=== PATIENT | female | born 1955 | race Caucasian/White ===

== ENCOUNTER 2018-11-12 12:45 | Emergency (ER) | payer MEDICAID ==
[~2018-11-12] VITALS: Ht 167.6 cm; Wt 72.7 kg
[2018-11-12 13:41] LABS: BASO # 0.1 10^3/uL (0.0-0.2); BASO % 0.7 % (0.0-1.0); EOS # 0.3 10^3/uL (0.0-0.50); EOS % 3.1 % (0.0-3.0); HEMATOCRIT 38.7 % (36.0-47.0); HEMOGLOBIN 12.6 g/dl (12.0-15.5); LYMPH % 22.2 % (24.0-44.0); MEAN CORPUSCULAR HEMOGLOBIN 29.7 pg (27.0-33.0); MEAN CORPUSCULAR HGB CONC 32.6 g/dl (32.0-36.5); MEAN CORPUSCULAR VOLUME 91.3 fl (80.0-96.0); MONO # 0.9 10^3/uL (0.0-0.8); MONO % 9.6 % (0.0-5.0); NEUTROPHILS # 5.8 10^3/uL (1.8-7.7); PLATELET COUNT, AUTOMATED 336 10^3/uL (150-450); RED BLOOD COUNT 4.24 10^6/uL (4.00-5.40); WHITE BLOOD COUNT 9.1 10^3/uL (4.0-10.0)
[2018-11-12 13:48] LABS: BLOOD UREA NITROGEN 27 MG/DL (7-18); CALCIUM LEVEL 9.3 MG/DL (8.8-10.2); CARBON DIOXIDE LEVEL 28 MEQ/L (21-32); CHLORIDE LEVEL 108 MEQ/L (98-107); CREATININE FOR GFR 0.91 MG/DL (0.55-1.30); GLOMERULAR FILTRATION RATE > 60.0 (>45); GLUCOSE, FASTING 94 MG/DL (70-100); NT-PRO BNP 33 PG/ML (<125); POTASSIUM SERUM 4.1 MEQ/L (3.5-5.1); SODIUM LEVEL 141 MEQ/L (136-145)
[2018-11-12 16:25] LABS: ALBUMIN 3.6 GM/DL (3.2-5.2); ALT/SGPT 26 U/L (12-78); BILIRUBIN,DIRECT 0.1 MG/DL (0.0-0.2); BILIRUBIN,TOTAL 0.3 MG/DL (0.2-1.0); CPK CREATINE PHOSPHOKINASE 134 U/L (26-192); TOTAL PROTEIN 7.6 GM/DL (6.4-8.2)
[2018-11-12 16:30] LABS: APPEARANCE, URINE CLEAR (CLEAR); BACTERIA, URINE AUTO NEGATIVE (NEGATIVE); BILIRUBIN, URINE AUTO NEGATIVE (NEGATIVE); BLOOD, URINE BLOOD NEGATIVE (NEGATIVE); COLOR, URINE YELLOW (YELLOW); GLUCOSE, URINE (UA) AUTO NEGATIVE (NEGATIVE); KETONE, URINE AUTO TRACE mg/dL (NEGATIVE); LEUKOCYTE ESTERASE, URINE AUTO TRACE (NEGATIVE); MUCUS, URINE SMALL (NEGATIVE); NITRITE, URINE AUTO NEGATIVE (NEGATIVE); PROTEIN, URINE AUTO NEGATIVE (NEGATIVE); RBC, URINE AUTO 3 /HPF (0-3); SPECIFIC GRAVITY URINE AUTO 1.027 (1.002-1.035); SQUAMOUS EPITHELIAL CELL UR AU 1 /HPF (0-6); UROBILINOGEN, URINE AUTO 0.2 mg/dL (0.0-2.0); WBC, URINE AUTO 4 /HPF (0-3)
--- NOTE | 2018-11-12 16:45 | REP ---
Clinical: Bilateral lower extremity pain and swelling. Technique: Trent scale and color Doppler evaluation using linear high frequency transducer. Findings: Ultrasound examination of the right and left lower extremity deep venous structures from the common femoral vein to the popliteal vein demonstrates normal compressibility flow and wave patterns in response to respiration and augmentation. There is no evidence for deep venous thrombosis. Impression: No evidence for deep venous thrombosis. Electronically Signed by David Duran MD 11/12/2018 04:36 P
[2018-11-12 17:10] VITALS: BP 138/84
== END 2018-11-12 17:15 | disposition home or self-care (01) ==
LOC: M ED 12:45
DX: M79.89 Other specified soft tissue disorders (principal); Z88.0 Allergy status to penicillin

== ENCOUNTER 2019-02-21 10:20 | Emergency (ER) | payer MEDICAID, OTHER ==
[~2019-02-21] VITALS: Ht 167.6 cm; Wt 72.7 kg
--- NOTE | 2019-02-21 11:54 | REP ---
Left shoulder three views : There is no fracture or dislocation. Mineralization and joint spaces are normal. There are no calcifications or foreign bodies. Impression: Negative left shoulder . Electronically Signed by Clay Tate MD 02/21/2019 11:45 A
--- NOTE | 2019-02-21 11:55 | REP ---
Right knee five views : There is no fracture or dislocation. Mineralization and joint spaces are normal. There are no calcifications or foreign bodies. There is no evidence of hemarthrosis. Impression: Negative right knee . Electronically Signed by Clay Tate MD 02/21/2019 11:46 A
[2019-02-21] MEDS ORDERED: NAPR-885 PO (12:07)
[2019-02-21 12:14] VITALS: BP 137/80
== END 2019-02-21 12:32 | disposition home or self-care (01) ==
LOC: M ED 10:20
DX: S83.91XA Sprain of unspecified site of right knee, initial encounter (principal); S43.422A Sprain of left rotator cuff capsule, initial encounter; W01.0XXA Fall on same level from slipping, tripping and stumbling without subsequent striking against object, initial encounter; Y92.89 Other specified places as the place of occurrence of the external cause; Z88.0 Allergy status to penicillin

== ENCOUNTER 2020-07-09 02:06 | Emergency (ER) | payer OTHER ==
[~2020-07-09] VITALS: Ht 167.6 cm; Wt 81.5 kg
[~2020-07-09 02:06] MED LIST: NAPR-885 PO
[2020-07-09] MEDS ORDERED: ACET-841 PO (02:14)
[2020-07-09] MEDS ORDERED: NAPR-837 PO (04:23)
[2020-07-09] MEDS ORDERED: NAPROXEN 250 MG TAB PO ONE (04:25)
[2020-07-09 04:37] VITALS: BP 135/83
== END 2020-07-09 04:38 | disposition home or self-care (01) ==
LOC: M ED 02:06
DX: M25.552 Pain in left hip (principal); X50.3XXA Overexertion from repetitive movements, initial encounter; Z88.0 Allergy status to penicillin

== ENCOUNTER → 2020-08-31 | Outpatient (CLI) | payer OTHER ==
[~2020-08-31] MED LIST changes: +ACET-841 PO; +ISOVUE-300 61% 50ML VIAL As Ordered ONE; +LIDOCAINE 1% MDV 20ML VIAL As Ordered ONE; +NAPR-837 PO; +TRIAMCINOLONE ACETONIDE SUSP 40 MG/ML VIAL (J3301) As Ordered ONE
--- NOTE | 2020-08-31 17:02 | REP ---
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 COMPARISON: None. TECHNIQUE: The procedure was performed under the direct supervision of Dr. Trent. The benefits and risks including but not limited to pain infection and bleeding and anaphylaxis were explained to the patient and informed consent was obtained. The left femoral neck was localized using fluoroscopic guidance. The skin was prepped and draped in a sterile fashion. 1% lidocaine was used as a local anesthetic. Using fluoroscopic guidance, and last image hold technology, a 22-gauge spinal needle was inserted and advanced to the femoral neck. 0.5 ml of Isovue-300 was injected to verify placement. Six ml of a solution containing 5 ml of 1% Xylocaine and 1 mL of Kenalog 40 mg was injected. The needle was then removed. The patient tolerated the procedure well and there were no immediate complications. Less than 6 seconds of fluoro time was utilized for this procedure. FINDINGS: None IMPRESSION: Fluoro guidance for left hip injection. <Electronically signed by Alirio Hopkins > 08/31/20 [id number] <Electronically signed by Clay Trent > 08/31/20 [id number]
== END ==
LOC: M RADPRO 11:18
PROVIDERS: ATTEND Orthopaedic Surgery
DX: M16.12 Unilateral primary osteoarthritis, left hip (principal)
CPT/HCPCS: 20610; 77002; J3301; Q9967

== ENCOUNTER → 2020-11-03 | Outpatient (CLI) | payer OTHER ==
[~2020-11-03] MED LIST changes: -ISOVUE-300 61% 50ML VIAL As Ordered ONE; -LIDOCAINE 1% MDV 20ML VIAL As Ordered ONE; -TRIAMCINOLONE ACETONIDE SUSP 40 MG/ML VIAL (J3301) As Ordered ONE
[2020-11-03 13:39] LABS: BASO # 0.1 10^3/uL (0.0-0.2); BASO % 0.7 % (0.0-1.0); EOS # 0.4 10^3/uL (0.0-0.5); HEMATOCRIT 36.4 % (36.0-47.0); HEMOGLOBIN 11.5 g/dl (12.0-15.5); LYMPH # 1.6 10^3/uL (1.5-5.0); LYMPH % 23.3 % (24.0-44.0); MEAN CORPUSCULAR HEMOGLOBIN 29.6 pg (27.0-33.0); MEAN CORPUSCULAR HGB CONC 31.6 g/dl (32.0-36.5); MEAN CORPUSCULAR VOLUME 93.8 fl (80.0-96.0); MONO # 0.8 10^3/uL (0.0-0.8); MONO % 11.4 % (2.0-8.0); NEUTROPHILS # 4.1 10^3/uL (1.5-8.5); NEUTROPHILS % 59.2 % (36.0-66.0); PLATELET COUNT, AUTOMATED 332 10^3/uL (150-450); RED BLOOD COUNT 3.88 10^6/uL (4.00-5.40)
[2020-11-03 14:31] LABS: RHEUMATOID FACTOR QUANT < 10.0 IU/ML (<15.0); URIC ACID 3.4 MG/DL (2.6-6.0)
[2020-11-03 16:18] LABS: ERYTHROCYTE SEDIMENTATION RATE 29 mm/hr (0-30)
[2020-11-04 18:09] LABS: ANTINUCLEAR ANTIBODIES DIRECT Negative (Negative); Lyme Disease IgG/IgM Antibodie <0.91 ISR (0.00-0.90); Lyme Disease IgM Ab Quantitati <0.80 index (0.00-0.79)
== END ==
LOC: M LAB 12:01
PROVIDERS: ATTEND Orthopaedic Surgery
DX: M16.12 Unilateral primary osteoarthritis, left hip (principal)

== ENCOUNTER → 2020-11-25 | Outpatient (CLI) | payer OTHER ==
--- NOTE | 2020-11-25 10:31 | REP ---
INDICATION: PREOP. COMPARISON: None. TECHNIQUE: PA and lateral views FINDINGS: The lungs are clear. The heart is not enlarged. There is no failure. The mediastinum and pleural surfaces are unremarkable. IMPRESSION: No active process. <Electronically signed by Sreekanth Perez > 11/25/20 1024
--- NOTE | 2020-11-25 20:25 | ECHO ---
ECHOCARDIOGRAM DATE OF PROCEDURE: 11/25/2020 Age: Gender: Female Height: 165 cm Weight: 80 kg REFERRING PHYSICIAN: Kayleen Herrmann M.D. INDICATION: Heart murmur. MEASUREMENTS: IVS 1.4 LV 4.2 LVPW 1.4 LA 4.0 Aorta 2.0 Left atrial volume index 34 Mitral E wave velocity 77 A wave 103 IVC 1.8 FINDINGS: This study is of acceptable technical quality. Patient is in sinus rhythm with narrow QRS complex. Left ventricle is of normal size. Mild to moderate left ventricular hypertrophy is noted. Overall normal left ventricular (LV) systolic function. Left ventricular ejection fraction (LVEF) estimated approximately 65-70%. Normal right ventricular (RV) size and systolic function. Left atrium is enlarged. Right atrium appears normal. Aortic valve is tricuspid. It is calcified and there is some minimal restriction of cusp mobility. Mitral valve also exhibits mild degenerative abnormalities with mitral annular calcifications and thickening of mitral leaflets, but mobility is preserved. Tricuspid and pulmonic valves appear normal. No pericardial effusion is noted. Inferior vena cava is of normal size, but there is some limitation of collapse with inspiration, indicative of probably minimally elevated central venous pressure. Aortic root is normal. Aortic arch and abdominal aorta also appear normal. Doppler interrogation of aortic valve reveals no insufficiency and trivial stenosis, with mean gradient 13 mmHg. There is trace mitral and trace tricuspid insufficiency. Calculated pulmonary artery pressure is probably in the low 30s, corresponding to mild pulmonary hypertension. Pulmonic valve is functionally competent. Mitral inflow pattern indicates grade 1 diastolic dysfunction. CONCLUSIONS: 1. Study is of acceptable technical quality, underlying sinus rhythm with narrow QRS complex. 2. Normal left ventricular (LV) size with mild to moderate left ventricular hypertrophy, preserved LV systolic function and grad 1 diastolic dysfunction. 3. Aortic sclerosis resulting in mild stenosis (mean gradient 30 mmHg) and no insufficiency. 4. Trace mitral and tricuspid insufficiency. 5. Likely mildly elevated central venous pressure and mild pulmonary hypertension. MTDD
== END ==
LOC: M CARPUL 09:11
PROVIDERS: ATTEND Pediatrics
DX: R01.1 Cardiac murmur, unspecified (principal)

== ENCOUNTER → 2023-07-04 | Outpatient (REF) | payer OTHER ==
[2023-07-04 16:51] LABS: CREATININE, URINE 142.5 MG/DL; MAU/CREAT RATIO 38.5 MCG/MG (0.0-30.0)
[2023-07-04 18:08] LABS: BASO # 0.1 10^3/uL (0.0-0.2); EOS # 0.2 10^3/uL (0.0-0.5); EOS % 2.9 % (0.0-3.0); HEMATOCRIT 38.1 % (36.0-47.0); HEMOGLOBIN 11.9 g/dl (12.0-15.5); LYMPH # 1.9 10^3/uL (1.5-5.0); LYMPH % 27.4 % (24.0-44.0); MEAN CORPUSCULAR HEMOGLOBIN 29.2 pg (27.0-33.0); MEAN CORPUSCULAR HGB CONC 31.2 g/dl (32.0-36.5); MEAN CORPUSCULAR VOLUME 93.4 fl (80.0-96.0); MONO # 0.6 10^3/uL (0.0-0.8); MONO % 8.8 % (2.0-8.0); NEUTROPHILS # 4.1 10^3/uL (1.5-8.5); NEUTROPHILS % 59.6 % (36.0-66.0); PLATELET COUNT, AUTOMATED 358 10^3/uL (150-450); RED BLOOD COUNT 4.08 10^6/uL (4.00-5.40); WHITE BLOOD COUNT 6.9 10^3/uL (4.0-10.0)
[2023-07-04 18:35] LABS: ALBUMIN 3.6 G/DL (3.2-5.2); ALKALINE PHOSPHATASE 105 U/L (46-116); ALT/SGPT 18 U/L (7.0-40); AST/SGOT 16 U/L (<34); BILIRUBIN,TOTAL 0.3 MG/DL (0.3-1.2); BLOOD UREA NITROGEN 29 MG/DL (9-23); CALCIUM LEVEL 9.6 MG/DL (8.3-10.6); CARBON DIOXIDE LEVEL 28 MMOL/L (20-31); CHLORIDE LEVEL 106 MMOL/L (98-107); CREATININE FOR GFR 0.75 MG/DL (0.55-1.30); GLOMERULAR FILTRATION RATE > 60.0 (>45); GLUCOSE, FASTING 94 MG/DL (74-106); POTASSIUM SERUM 4.7 MMOL/L (3.5-5.1); SODIUM LEVEL 139 MMOL/L (136-145); TOTAL PROTEIN 7.3 G/DL (5.7-8.2)
[2023-07-04 18:38] LABS: THYROID STIMULATING HORMONE 1.068 uIU/ML (0.55-4.78)
[2023-07-04 18:45] LABS: HEMOGLOBIN A1c 5.3 % (4.0-6.0)
== END ==
LOC: M LAB REF 16:03
PROVIDERS: ATTEND Pediatrics
DX: R03.0 Elevated blood-pressure reading, without diagnosis of hypertension (principal); K21.9 Gastro-esophageal reflux disease without esophagitis; E66.9 Obesity, unspecified; Z68.29 Body mass index [BMI] 29.0-29.9, adult

== ENCOUNTER 2024-02-18 03:48 | Emergency (ER) | payer MEDICARE, OTHER ==
[~2024-02-18] VITALS: Ht 162.6 cm; Wt 76.1 kg
[2024-02-18 03:50] VITALS: TEMP 97.5
[2024-02-18] MEDS: FOSFOMYCIN TROMETHAMINE 3 GM POWDER PACKET (MONUROL) PO ONE (05:27)
[2024-02-18 05:45] VITALS: O2SAT 97
[2024-02-18 05:46] VITALS: BP 130/67
== END 2024-02-18 06:02 | disposition home or self-care (01) ==
LOC: M ED 03:48
DX: N39.0 Urinary tract infection, site not specified (principal); Z88.0 Allergy status to penicillin; Z79.1 Long term (current) use of non-steroidal anti-inflammatories (NSAID); Z79.899 Other long term (current) drug therapy

== ENCOUNTER → 2025-03-02 | Outpatient (REF) | payer MEDICARE, MEDICAID ==
[2025-03-02 13:00] LABS: CREATININE, URINE 160.6 MG/DL; MALB URINE SIEMENS 14.0 MG/L; MAU/CREAT RATIO 8.7 MCG/MG (0.0-30.0)
[2025-03-02 15:20] LABS: BASO # 0.1 10^3/uL (0.0-0.2); BASO % 0.9 % (0.0-1.0); EOS # 0.3 10^3/uL (0.0-0.5); EOS % 4.9 % (0.0-3.0); LYMPH # 1.5 10^3/uL (1.5-5.0); LYMPH % 22.4 % (24.0-44.0); MONO # 0.7 10^3/uL (0.0-0.8); MONO % 9.4 % (2.0-8.0); NEUTROPHILS # 4.3 10^3/uL (1.5-8.5); NEUTROPHILS % 62.1 % (36.0-66.0); PLATELET COUNT, AUTOMATED 357 10^3/uL (150-450)
[2025-03-02 15:30] LABS: ALT/SGPT 21.0 U/L (7.0-40); AST/SGOT 26.0 U/L (<34); CALCIUM LEVEL 9.1 MG/DL (8.3-10.6); CARBON DIOXIDE LEVEL 27.0 MMOL/L (20-31); CHLORIDE LEVEL 106.0 MMOL/L (98-107); CREATININE FOR GFR 0.74 MG/DL (0.55-1.30); GLOMERULAR FILTRATION RATE 88.6 (>45); POTASSIUM SERUM 4.3 MMOL/L (3.5-5.1); SODIUM LEVEL 141.0 MMOL/L (136-145)
[2025-03-02 15:31] LABS: TOTAL 25(OH) VITAMIN D 31.4 NG/ML (20.0-100.0)
== END ==
LOC: M LAB REF 12:00
PROVIDERS: ATTEND Pediatrics
DX: I10 Essential (primary) hypertension (principal); K21.9 Gastro-esophageal reflux disease without esophagitis; E55.9 Vitamin D deficiency, unspecified